=== PATIENT | female | born 1995 | race Caucasian/White ===

== ENCOUNTER 2016-12-12 06:42 | Day surgery (SDC) | payer BC ==
--- NOTE | ~2016-12-12 | OP ---
Record Of Operation [facility] [address] [place]. [address] NAME: MITUL MARSHALL : 89 STATUS : [facility]#: [id number] AGE: 21 ADM/REG DATE : 12/12/16 MR#: [id number] REPORT SERV DATE: 12/12/16 DICTATED BY: MATTEO KHAN DATE: 12/12/16 REPORT STATUS : Draft TRANSCRIBED BY: MODPallavi DATE: 12/12/16 DATE OF PROCEDURE: 12/12/2016 OPERATIVE PROCEDURE: Partial hymenectomy. 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 SURGEON: Matteo Khan M.D. ANESTHESIA: General. FINDINGS: The patient's hymen was relatively thick. There was only a small opening in the central portion of the hymen. The diameter of the opening estimated at 5 mm. PROCEDURE: The patient was placed on the operating table in the supine position. After satisfactory general anesthesia, the patient was placed in the lithotomy. The perineum was prepped and the patient was draped in usual fashion. After examine the patient, a wedge- shaped portion of hymen was excised from the 3 o'clock and 9 o'clock position. 4-0 Vicryl continues running suture was placed to close the defect, so mucosal edge to mucosal edge with a continues running suture. When suture was used on the right and went on to the left, one additional interrupted suture was required for hemostasis. The area was inspected with closure of the surgical defect and adequate hemostasis. The procedure was now complete. The patient was returned to the supine position. Estimated blood loss was 25 mL. Sponge and needle counts were correct. The patient was awakened from general anesthesia and transferred to the recovery room in stable condition. PARIS/JEREMYL Matteo Khan MD / [id number] CC: Matteo Khan MD
[~2016-12-12 06:42] MED LIST: BIRTH CONTROL PO
[2016-12-12 07:11] LABS: HEMATOCRIT 41.2 % (36.0-48.0); HEMOGLOBIN 14.1 g/dL (12.0-16.0)
== END 2016-12-12 10:56 | disposition home or self-care (01) ==
LOC: SDC 06:42
PROVIDERS: Obstetrics & Gynecology
PROC: 0UBKXZZ Excision of Hymen, External Approach (ICD-10-PCS; principal; 2016-12-12 07:45)
DX: N89.6 Tight hymenal ring (principal); K58.9 Irritable bowel syndrome, unspecified; Z83.3 Family history of diabetes mellitus; Z82.49 Family history of ischemic heart disease and other diseases of the circulatory system; Z98.890 Other specified postprocedural states
CPT/HCPCS: 84703; 85014; 85018; J2250; J2405; J3010